=== PATIENT | male | born 2000 | race Caucasian/White ===

== ENCOUNTER 2019-01-26 15:17 | Day surgery (SDC) | payer BC ==
[2019-01-26] MEDS ORDERED: Rocuronium 50 MG/5 ML Vial ONE (15:24)
[2019-01-26] MEDS ORDERED: Propofol 200 MG/20 ML SDV ONE (15:24)
[2019-01-26] MEDS ORDERED: Midazolam 1 MG/ML 2 ML SDV ONE (15:24)
[2019-01-26] MEDS ORDERED: Ondansetron 4 MG/2 ML SDV ONE (15:24)
[2019-01-26] MEDS ORDERED: fentaNYL 250 MCG/5 ML SDV ONE (15:25)
[2019-01-26] MEDS ORDERED: Lidocaine 1% 4 ML ONE (15:25)
[2019-01-26] MEDS ORDERED: Lactated Ringers 1,000 ML IV SCH (16:15)
[2019-01-26] MEDS ORDERED: Ketorolac 30 MG/ML SDV ONE (16:21)
[2019-01-26] MEDS ORDERED: Lactated Ringers 1,000 ML ONE (16:23)
[2019-01-26] MEDS ORDERED: Neostigmine Methylsulfate 1 MG/ML 5 ML Syringe ONE (16:23)
[2019-01-26] MEDS ORDERED: HYDROmorphone 0.5 MG/0.5 ML Syringe IVPUSH PRN (16:49)
[2019-01-26] MEDS ORDERED: fentaNYL 100 MCG/2 ML SDV IVPUSH PRN (16:49)
--- NOTE | 2019-01-26 16:51 | PCM.POSTAN ---
POST ANESTHESIA ASSESSMENT - MENTAL STATUS Mental Status: Alert, Oriented - VITAL SIGNS Pulse Rate: 109 SaO2: 100 Resp Rate: 15 Blood Pressure: 137/75 Temperature: 37.7 C - RESPIRATORY Respiratory Status: Respiratory Rate WNL, Airway Patent, O2 Saturation Stable, Supplemental Oxygen - CARDIOVASCULAR CV Status: Pulse Rate WNL, Blood Pressure Stable - GASTROINTESTINAL GI Status: No Symptoms - PAIN Pain Score: 0 - POST OP HYDRATION Hydration Status: Adequate & Stable - OBSERVATIONS Free Text/Narrative:: no anesthesia complications noted
[2019-01-26] MEDS ORDERED: Acetaminophen/oxyCODONE 325-5 MG Tab PO PRN (16:52)
[2019-01-26] MEDS ORDERED: Ondansetron 4 MG/2 ML SDV IVPUSH PRN (16:52)
[2019-01-26] MEDS ORDERED: Morphine 4 MG/ML Syringe IVPUSH PRN (16:52)
[2019-01-26] MEDS ORDERED: Sodium Chloride 0.9% 10 ML Syringe FLUSH PRN (16:55)
[2019-01-27] MEDS ORDERED: Acetaminophen 325 MG Tab PO PRN
--- NOTE | 2019-01-27 00:23 | OR ---
DATE OF OPERATION: 01/26/2019 SURGEON: Ferny Noland MD PREOPERATIVE DIAGNOSIS: Acute appendicitis. POSTOPERATIVE DIAGNOSIS: Acute appendicitis. OPERATION PERFORMED: Laparoscopic appendectomy. ANESTHESIA: General. ESTIMATED BLOOD LOSS: 20 mL. SPECIMEN: Appendix. INDICATION FOR PROCEDURE: This 18-year-old male has had a day-long history of right lower quadrant abdominal pain. CT scan shows acute appendicitis. He has an elevated white blood cell count to 14,000. DESCRIPTION OF PROCEDURE: After adequate preparation, an infraumbilical incision was made and a Veress needle placed intra-abdominally for insufflation. A 5 mm trocar was inserted and then a camera under direct vision. Two other midline trocars were placed without incident. Examination of the appendix did show the omentum to be wrapped around the appendix; as this was peeled off, the appendix showed the distal half to be necrotic. No perforation or abscess, however. A stapling device was used to transect the mesoappendix and then a second firing was used to transect the appendix off the base of the cecum. The staple line had a mild bleeder on this and it was cauterized just to provide hemostasis. The right lower quadrant was suctioned clear. No other intra-abdominal abnormalities were noted. The trocars were removed, abdomen desufflated and the skin closed with Monocryl. MMLORRI /[id number]
--- NOTE | 2019-01-27 00:30 | HP ---
DATE OF ADMISSION: 01/26/2019 INTRODUCTION: This is a 18-year-old male, presented to the emergency room as a transfer from [facility] for evaluation of right lower quadrant abdominal pain. His history, physical, and labs are consistent with acute appendicitis. CT scan done in [facility] confirm inflamed thickened appendix. The patient's white blood cell count was elevated to 14,000. PAST MEDICAL HISTORY: The patient has no allergies. CURRENT MEDICATIONS: None. PAST SURGICAL HISTORY: None. SOCIAL HISTORY: The patient is a worker. He does not smoke. REVIEW OF SYSTEMS: Negative for all systems. PHYSICAL EXAMINATION: HEENT: Normal. CHEST: Lungs are clear bilaterally. HEART: Normal sinus rhythm. ABDOMEN: Maximally tender in the right lower quadrant with positive guarding and rebound. EXTREMITIES: Normal. NEUROLOGIC: Intact. ASSESSMENT: Acute appendicitis. PLAN: I discussed the risks, benefits, and expected outcomes of a laparoscopic appendectomy with this patient. We will give him some preoperative antibiotics and proceed to the operating room today. KANU /[id number]
--- NOTE | 2019-01-27 08:48 | PCM48HPAN ---
Post Anesthesia Note - EVALUATION WITHIN 48HRS OF ANESTHETIC Vital Signs in Normal Range: Yes Patient Participated in Evaluation: Yes Respiratory Function Stable: Yes Airway Patent: Yes Cardiovascular Function Stable: Yes Hydration Status Stable: Yes Pain Control Satisfactory: Yes Nausea and Vomiting Control Satisfactory: Yes Mental Status Recovered: Yes Pulse Rate: 105 Resp Rate: 18 Temperature: 37.5 C Blood Pressure: 115/66
--- NOTE | 2019-01-27 09:25 | PCM.SN ---
- Free Text/Narrative Note: Stable POD#1. Minimal pain. PO tolerated. Wounds clean and dry. Instructions given. No FU needed. No restrictions and diet or activity. Can DC
[2019-01-27] MEDS ORDERED: Ibuprofen 400 MG Tab PO ONE (09:31)
== END 2019-01-27 10:19 | disposition home or self-care (01) ==
LOC: JD.ED 15:17 → JD.SDS 15:52 → JD.MS 18:17 → JD.SDS 01-27 10:19
PROVIDERS: ATTEND Surgery
DX: K35.33 Acute appendicitis with perforation, localized peritonitis, and gangrene, with abscess (principal); Z88.2 Allergy status to sulfonamides
CPT/HCPCS: 44970; 99284; A9270; J0694; J1885; J2001; J2250; J2405; J2704; J2710; J3010; J7120